=== PATIENT | male | born 1975 | race Two or more races ===

== ENCOUNTER 2017-04-29 12:52 | Emergency (ER) | payer MEDICAID ==
[~2017-04-29] VITALS: Ht 177.8 cm; Wt 72.6 kg
[2017-04-29 12:55] VITALS: BP 156/105
== END 2017-04-29 15:03 | disposition home or self-care (01) ==
LOC: ER 12:53
DX: H60.91 Unspecified otitis externa, right ear (principal); H60.11 Cellulitis of right external ear; F11.10 Opioid abuse, uncomplicated; I10 Essential (primary) hypertension
CPT/HCPCS: 82962; 99283; A4606; Z7610

== ENCOUNTER 2017-10-08 11:41 | Emergency (ER) | payer MEDICAID ==
[~2017-10-08] VITALS: Ht 177.8 cm; Wt 77.1 kg
[2017-10-08 11:42] VITALS: BP 147/85
--- NOTE | 2017-10-08 12:17 | NUR ---
BACTRIM CHANGED TO CLINDAMYCIN DUE TO SULFA ALLERGY
== END 2017-10-08 12:17 | disposition home or self-care (01) ==
LOC: ER 11:41
DX: L02.411 Cutaneous abscess of right axilla (principal); I10 Essential (primary) hypertension; Z88.2 Allergy status to sulfonamides
CPT/HCPCS: 99283; A4606; Z7610

== ENCOUNTER 2018-10-04 20:35 | Inpatient (IN) | payer OTHER ==
[~2018-10-04] VITALS: Ht 177.8 cm; Wt 79.4 kg
[2018-10-04 23:55] VITALS: BP 148/89
[2018-10-04] MEDS ORDERED: IV NS 0.9% 1,000 ML IV PRN (23:56)
[2018-10-05] MEDS ORDERED: Z GUARD REMEDY 2 OZ OINT TP PRN
[2018-10-05] MEDS ORDERED: ZOLPIDEM TARTRATE 5 MG TABLET PO PRN
[2018-10-05] MEDS ORDERED: MAG HYDROX/AL HYDROX/SIMETH 30 ML UDC PO PRN
[2018-10-05] MEDS ORDERED: MAGNESIUM HYDROXIDE 30 ML UDC PO PRN
[2018-10-05] MEDS ORDERED: ALPRAZOLAM 0.25 MG TABLET PO PRN
[2018-10-05] MEDS ORDERED: ONDANSETRON HCL/PF 4 MG/2 ML VIAL IVP PRN
[2018-10-05] MEDS ORDERED: ACETAMINOPHEN 325 MG TABLET PO PRN
[2018-10-05] MEDS ORDERED: CEFTRIAXONE 1 G in IV D5W 50 ML IV SCH ×2 (00:30→21:00)
[2018-10-05] MEDS ORDERED: CEFTRIAXONE 1 G VIAL ONE (00:30)
[2018-10-05] MEDS: HYDROCODONE/APAP 5/325MG 1 EACH TABLET PO PRN ×2 (00:39→05:03)
[2018-10-05 00:50] LABS: BASOPHILS # (AUTO) 0.1 /CMM (0.0-0.2); BASOPHILS % (AUTO) 0.8 % (0.0-2.0); EOSINOPHILS % (AUTO) 2.9 % (0.0-6.0); HEMATOCRIT 37 % (39-51); HEMOGLOBIN 12.4 g/dL (13.5-17.5); LYMPHOCYTES # (AUTO) 0.8 /CMM (0.8-4.8); LYMPHOCYTES % (AUTO) 8.7 % (20.0-44.0); MEAN CORPUSCULAR HGB CONC 33 g/dl (31.0-36.0); MEAN CORPUSCULAR VOLUME 80 fL (80-96); MONOCYTES # (AUTO) 0.5 /CMM (0.1-1.30); MONOCYTES % (AUTO) 5.4 % (2.0-12.0); NEUTROPHILS # (AUTO) 7.4 /CMM (1.8-8.9); NEUTROPHILS % (AUTO) 82.2 % (43.0-81.0); PLATELET COUNT (AUTO) 315 /CMM (150-450); RED BLOOD CELL COUNT(AUTO) 4.69 MIL/uL (4.5-6.0)
[2018-10-05] MEDS ORDERED: VANCOMYCIN 1 GM in IV NS 0.9% 250 ML IV ONE (01:00)
[2018-10-05 01:01] LABS: CALCIUM, SERUM 8.1 mg/dL (8.5-10.1); MAGNESIUM 1.6 mg/dL (1.8-2.4); POTASSIUM 3.3 mmol/L (3.5-5.1)
--- NOTE | 2018-10-05 01:12 | NUR ---
MS ASSEMBLER CARDS AND ANNOUNCEMENTS NOTE: PT ADMITTED FROM [facility] ACCOMPANIED BY 2 DIRECTOR PROCESS IMPROVEMENT. PT IS ALERT AND ORIENTED X3, VERBALLY RESPONSIVE. ON ROOM AIR, BREATHING EVEN AND UNLABORED WITH NORMAL RESPIRATIONS. SATURATING WELL. PT COMPLAINED OF PAIN ON HIS LEFT 4TH FINGER. PT THIBODEAUX IV ON HIS RIGHT UPPER ARM #20, INTACT AND PATENT, FLUSHING WELL. NO SIGNS/SYMPTOMS OF INFILTRATION NOTED. PERTINENT ASSESSMENTS DONE. REDNESS/WOUND/SWELLING ON LEFT ARM/FINGER AND ABRASION ON HIS ABDOMEN WAS NOTED, PICTURES TAKEN AND PLACED ON CHART. BELONGINGS LIST DONE. KEPT CLEAN, DRY AND COMFORTABLE. CALL LIGHT PLACED WITHIN REACH. ENCOURAGED TO VERBALIZE NEEDS AND CONCERNS AND TO CALL FOR ASSISTANCE IF NEEDED. WILL CONTINUE TO MONITOR.
[2018-10-05] MEDS ORDERED: ENOXAPARIN SODIUM 40 MG/0.4 ML DISP.SYRIN SQ SCH ×2 (01:30→21:00)
[2018-10-05] MEDS ORDERED: VANCOMYCIN 1 GM VIAL ONE (01:41)
[2018-10-05] MEDS: MAGNESIUM OXIDE 400 MG TABLET PO SCH ×2 (03:18→08:42)
[2018-10-05 04:00] VITALS: BP 142/74
[2018-10-05] MEDS: HYDROMORPHONE INJ 2 MG/ML DISP.SYRIN IV PRN ×2 (05:29→10:49)
--- NOTE | 2018-10-05 05:33 | NUR ---
MS RN NOTE: PATIENT COMPLAINED OF LEFT HAND SWELLING AND PAIN. PRN NORCO GIVEN, BUT PT STATED THAT HE WAS NOT RELIEVED AND THAT THE PAIN LEVEL WENT UP TO 9/10, PRN DILAUDID GIVEN. WILL CONTINUE TO MONITOR PT.
--- NOTE | 2018-10-05 06:44 | NUR ---
MS RN NOTE: NO CHANGES NOTED THROUGHOUT THE SHIFT. VERBALIZATION OF RELIEF NOTED. NO SOB. IV ON RIGHT UPPER ARM #20 INTACT AND PATENT, IVF INFUSING WELL. KEPT CLEAN, DRY AND COMFORTABLE. CALL LIGHT PLACED WITHIN REACH. SAFETY AND FALL PRECAUTIONS OBSERVED AND MAINTAINED. WILL ENDORSE TO DAY SHIFT RN FOR CONTINUITY OF CARE.
[2018-10-05 08:00] VITALS: BP 132/91
[2018-10-05] MEDS ORDERED: FEE PK DOSING 1 MIN EA MC ONE (08:17)
[2018-10-05] MEDS ORDERED: IBUP200C5 PO (08:32)
[2018-10-05] MEDS ORDERED: VANCOMYCIN 1 GM in IV D5W 250 ML IV SCH (09:00)
--- NOTE | 2018-10-05 10:33 | NUR ---
MS RN NOTE: . VERBALIZATION OF RELIEF NOTED. NO SOB. IV ON RIGHT UPPER ARM #20 INTACT AND PATENT, IVF INFUSING WELL. KEPT CLEAN, DRY AND COMFORTABLE. CALL LIGHT PLACED WITHIN REACH. SAFETY AND FALL PRECAUTIONS OBSERVED AND MAINTAINED.
--- NOTE | 2018-10-05 10:45 | NUR ---
Social service consult requested by Dr. Gonzalez for homelessness. Pt. is a 43 year old male who was admitted to [facility] for left hand cellulitis. SW met with pt. bedside. Pt. appears dirty and disheveled. Pt's mood is congruent. Pt's fingernails had black dirt underneath. Pt. kept complaining about pain and is requesting pain medication. BRIE informed pt. she will let his nurse know his request. Pt. had his guitar and several belongings bedside. Pt. states he is originally from [place] and has been homeless for the past 3 years. Pt's emergency contact is Ranulfo Herrera . Pt. states he resides in his car which is currently located by the [employer] on [address] in [place]. Pt. is a methamphetamine user and occasionally uses heroin. Pt. last used methamphetamine two days ago. Pt. has a psychiatric diagnosis of Bipolar II and Schizoaffective Disorder. Pt. is not on any medication for his diagnosis. Pt. denies suicidal and homicidal ideations and visual/auditory hallucinations at this time. BRIE offered pt. winter nursing home placement and homeless resources, however pt. declined both. Pt. states, he wants to go back to get his car. No other social service needs are requested at this time. SW is available, if needed. BRIE informed NICHELLE Browning regarding pt's discharge plan. SW to have pt. sign homeless patient waiver form upon discharge.
--- NOTE | 2018-10-05 11:28 | NUR ---
patient left AMA patient was informed about the risk for leaving when not fully treated. Patient informed by the doctor Andedmar of treatment plan prior to patient leaving AMA. Despite all the information given to the patient , patient still wanted to leave the hospital against medical advice. Patient IV removed prior to leaving.
--- NOTE | 2018-10-05 11:47 | NUR ---
Told patient his potassium was low and informed patient what potassium was needed for. Patient refused to stay for treatment. Patient left AMA.
== END 2018-10-05 11:25 | disposition left against medical advice (07) | DRG 383 ==
LOC: MEDSG1 23:31
PROVIDERS: ADMIT Internal Medicine; ATTEND Internal Medicine
DX: L03.114 Cellulitis of left upper limb (principal); E83.42 Hypomagnesemia; F11.20 Opioid dependence, uncomplicated; Z59.0 Homelessness; Z86.14 Personal history of Methicillin resistant Staphylococcus aureus infection; E87.6 Hypokalemia; F41.9 Anxiety disorder, unspecified; F17.200 Nicotine dependence, unspecified, uncomplicated; R73.9 Hyperglycemia, unspecified; Z88.2 Allergy status to sulfonamides
CPT/HCPCS: 36415; 80048-TC; 83735-TC; 85025-TC; 87081-TC; A6402; G0378; J0696; J1170; J1650; J3370; J7050; J7060; Z7610